=== PATIENT | male | born 1990 | race Caucasian/White ===

== ENCOUNTER 2020-10-29 18:58 | Emergency (ER) | payer SELFPAY ==
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
== END 2020-10-29 20:15 | disposition home or self-care (01) ==
LOC: MW.ED 18:58
DX: S60.512A Abrasion of left hand, initial encounter (principal); S69.92XA Unspecified injury of left wrist, hand and finger(s), initial encounter; V86.56XA Driver of dirt bike or motor/cross bike injured in nontraffic accident, initial encounter
CPT/HCPCS: 73110-26-LT; 73110-LT; 99283; 99284

== ENCOUNTER 2020-12-18 12:08 | Emergency (ER) | payer SELFPAY ==
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
== END 2020-12-18 15:56 | disposition home or self-care (01) ==
LOC: MW.ED 12:08
DX: S86.912A Strain of unspecified muscle(s) and tendon(s) at lower leg level, left leg, initial encounter (principal); Z72.0 Tobacco use; V86.56XA Driver of dirt bike or motor/cross bike injured in nontraffic accident, initial encounter
CPT/HCPCS: 73562-26-LT; 73562-LT; 99283